=== PATIENT | male | born 1955 | race Caucasian/White ===

== ENCOUNTER 2020-06-13 08:25 | Emergency (ER) | payer OTHER, BC ==
[2020-06-13 08:33] VITALS: BP 170/126; TEMP 98.3; BMI 22.9
[2020-06-13] MEDS ORDERED: ENALAPRIL MALEATE 10 MG TABLET PO ONE (08:41)
[2020-06-13] MEDS ORDERED: DOXYCYCLINE HYCLATE 100 MG CAPSULE PO ONE ×2 (08:54→09:00)
== END 2020-06-13 09:42 | disposition home or self-care (01) ==
LOC: FER 08:25
DX: S70.262A Insect bite (nonvenomous), left hip, initial encounter (principal); R21 Rash and other nonspecific skin eruption; I10 Essential (primary) hypertension; W57.XXXA Bitten or stung by nonvenomous insect and other nonvenomous arthropods, initial encounter
CPT/HCPCS: 99283-25